=== PATIENT | female | born 2000 | race African-American/Black ===

== ENCOUNTER 2023-12-28 19:22 | Emergency (ER) | payer OTHER, SELFPAY ==
[~2023-12-28] VITALS: Ht 157.5 cm; Wt 95.6 kg
[2023-12-28] MEDS: CLINDAMYCIN 150MG CAPSULE PO ONE (21:58)
[2023-12-28] MEDS: NORCO, ANEXSIA 5/325MG TABLET (HYDROcodone/ACETAMINOPHEN) PO ONE (21:58)
[2023-12-28] MEDS ORDERED: CLEO150C PO (22:21)
[2023-12-28] MEDS ORDERED: HYDR-3713 PO (22:21)
[2023-12-28] MEDS ORDERED: CLEO300C2 PO (22:21)
[2023-12-28 22:38] VITALS: BP 128/75; TEMP 98.3; O2SAT 99
== END 2023-12-28 22:39 | disposition home or self-care (01) ==
LOC: M ED 19:22
DX: K04.7 Periapical abscess without sinus (principal); Z88.1 Allergy status to other antibiotic agents; Z79.1 Long term (current) use of non-steroidal anti-inflammatories (NSAID); Z79.2 Long term (current) use of antibiotics